=== PATIENT | female | born 1995 | race Caucasian/White ===

== ENCOUNTER 2017-07-10 09:32 | Emergency (ER) | payer OTHER ==
[2017-07-10 09:37] VITALS: BP 111/64; PULSE 87; RESP 18; TEMP 98.2; O2SAT 92
[2017-07-10] MEDS ORDERED: HYDROCODONE/APAP 5/325 TAB PO ONE (09:49)
--- NOTE | 2017-07-10 10:03 | EDPHY ---
H & P Stated Complaint: left arm injury 07/09 playing soccer Time Seen by Provider: 07/10/17 10:00 HPI/ROS: HPI: This is a 22-year-old female who presents with Chief Complaint: Left elbow injury Location: Left elbow Quality: Injury Duration: Yesterday afternoon Signs and Symptoms: + pain, no radiation, no weakness, no swelling, no numbness , no tingling Timing: Sudden, worse this morning Severity:06/16 Context: Patient was playing soccer yesterday for rec tryouts; lost her footing and she tripped and fell forward landing on her left arm. She felt immediate pain but it went away. She iced it when she got home from try outs and continued her activities of daily living. She woke up this morning and extreme pain with her left elbow with decreased range of motion secondary to pain. Right hand dominant. Drove self to ER. Modifying Factors: Ice applied transit really Comment: ROS: Constitutional: No fever, no chills, no weight loss Eyes: No blurred vision Respiratory: No shortness of breath, no cough Cardiovascular: No chest pain Gastrointestinal: No nausea, no vomiting no diarrhea Genitourinary: No dysuria Extremities: No myalgias Neurologic: No weakness, no numbness Skin: No rashes Hematologic: No bruising, no bleeding MEDICAL/SURGICAL HISTORY: Generally healthy. Denies any surgical history. Source: Patient Exam Limitations: No limitations - Personal History LMP (Females 10-55): 15-21 Days Ago Current Tetanus/Diphtheria Vaccine: Unsure Current Tetanus Diphtheria and Acellular Pertussis (TDAP): Unsure - Medical/Surgical History Hx Asthma: No Hx Chronic Respiratory Disease: No Hx Diabetes: No Hx Cardiac Disease: No Hx Renal Disease: No Hx Cirrhosis: No Hx Alcoholism: No Hx HIV/AIDS: No Hx Splenectomy or Spleen Trauma: No Other PMH: denies - Social History Smoking Status: Never smoked - Physical Exam Exam: CONSTITUTIONAL: See referral young adult white female, awake and alert, no obvious distress HEENT: Atraumatic and normocephalic, PERRL, EOMI. Tympanic membranes clear. . Oropharynx clear, no exudate and moist pink mucosa. Airway patent. No lymphadenopathy. No meningismus. Cardiovascular: Normal S1/S2, regular rate, regular rhythm, without murmur rub or gallop. PULMONARY/CHEST: Symmetrical and nontender. Clear to auscultation bilaterally Good air movement. No accessory muscle usage. ABDOMEN: Soft, nondistended, nontender, no rebound, no guarding, no peritoneal signs, no masses or organomegaly. No CVAT. EXTREMITIES: 2/2 pulses, no deformities, no clubbing, no cyanosis or edema. NEUROLOGICAL: no focal neuro deficits. GCS 15. SKIN: Warm and dry, no erythema. no rash. Good capillary refill. Constitutional: Initial Vital Signs Temperature (C) 36.8 C 07/10/17 09:34 Heart Rate 87 07/10/17 09:34 Respiratory Rate 18 07/10/17 09:34 Blood Pressure 111/64 07/10/17 09:34 O2 Sat (%) 92 07/10/17 09:34 O2 Delivery Mode Room Air Allergies/Adverse Reactions: No Known Allergies Allergy (Unverified 01/02/16 01:04) Home Medications: Medication Instructions Recorded oxyCODONE/APAP 5/325 [Percocet 1 - 2 tab PO Q4H PRN #20 tab 07/10/17 5/325 (*)] Medical Decision Making - Diagnostics Imaging Results: Imaging Impressions Elbow X-Ray 07/10/17 09:42 Impression: Radial head fracture. 2. Left Wrist, 4 views including a navicular view History: Pain post trauma, soccer injury. Findings: No fracture or dislocation is identified. The carpal bones are intact. The navicular is specifically normal. Impression: Nothing acute identified. Wrist X-Ray 07/10/17 09:49 Impression: Radial head fracture. 2. Left Wrist, 4 views including a navicular view History: Pain post trauma, soccer injury. Findings: No fracture or dislocation is identified. The carpal bones are intact. The navicular is specifically normal. Impression: Nothing acute identified. Procedures: Procedure: Fracture treatment. The patient had x-rays taken and I confirmed that the patient had a fractured left radial head; minimal displacement. I do not believe that the patient will require reduction at a later date. A sling immobilized in flexion was applied by tech. After application of the splint I returned and re-examined the patient. The splint was adequately immobilizing the joint and distal to the splint the patient's circulation and sensation was intact. ED Course/Re-evaluation: Elbow x-ray, wrist x-ray, oral medication Fall accidental in nature and history supports type of injury No signs of neurovascular compromise/compartment syndrome/tenting of skin/ joints above and below were examined and neurovascularly intact. Placed in sling; immobilization in flexion; mobility restrictions; RICE; Ortho follow-up Differential Diagnosis: Differential diagnosis includes but is not limited to capitellum fracture, olecranon fracture, elbow dislocation, radial fracture, ulnar fracture, nerve injury, tendon injury. - Data Points Medications Given: Discontinued Medications Hydrocodone Bitart/Acetaminophen ([place] 5/325) 1 tab PO EDNOW ONE Stop: 07/10/17 09:50 Last Admin: 07/10/17 10:00 Dose: 1 tab Departure - Departure Disposition: Home, Routine, Self-Care Clinical Impression: Closed fracture of head of left radius Qualifiers: Encounter type: initial encounter Fracture alignment: nondisplaced Qualified Code(s): S52.125A - Nondisplaced fracture of head of left radius, initial encounter for closed fracture Condition: Good Instructions: Elbow Fracture (ED) Additional Instructions: Take ibuprofen 600-800 mg 3 times a day with food as needed for pain and inflammation. Take [place] every 4 hours as needed for severe pain or breakthrough pain. Left elbow is to remain immobilized in flexion with sling continuously. Call Orthopedics on Tuesday for follow-up within the next 2-3 days. Referrals: NONE *PRIMARY CARE P,. [Primary Care Provider] - As per Instructions Rakesh Dietz MD [Medical Doctor] - 2-3 days, call for appt. Prescriptions: oxyCODONE/APAP 5/325 [Percocet 5/325 (*)] 1 - 2 tab PO Q4H PRN #20 tab PRN Reason: Pain, Severe
== END 2017-07-10 10:27 | disposition home or self-care (01) ==
DX: S52.125A Nondisplaced fracture of head of left radius, initial encounter for closed fracture (principal); W01.0XXA Fall on same level from slipping, tripping and stumbling without subsequent striking against object, initial encounter; Y99.8 Other external cause status; Y93.66 Activity, soccer
CPT/HCPCS: A4565

== ENCOUNTER 2017-08-13 03:01 | Emergency (ER) | payer OTHER ==
[2017-08-13] MEDS ORDERED: NS 1,000 ML IV ONE (03:06)
--- NOTE | 2017-08-13 03:06 | EDPHY ---
H & P HPI/ROS: HPI CHIEF COMPLAINT: Alcohol Intoxication HISTORY OF PRESENT ILLNESS: Patient 22-year-old female denies any significant medical history she presents emergency room with acute alcohol intoxication. Unclear exactly how much she drank. Unable to ambulate. She denies any focal complaints. She was brought in by EMS. Past Medical History: Denies significant medical history Past Surgical History: Denies significant surgical history Social History: Alcohol this evening, denies illicit drugs or tobacco. Family History: Noncontributory ROS REVIEW OF SYSTEMS: A comprehensive 10 point review of systems is otherwise negative aside from elements mentioned in the history of present illness. Exam Constitutional Intoxicated, triage nursing summary reviewed, vital signs reviewed, Sleepy, smells of alcohol Eyes normal conjunctivae and sclera, horizontal beating nystagmus consistent acute alcohol intoxication, otherwise pupils equal and react to light HENT normal inspection, atraumatic, moist mucus membranes, no epistaxis, neck supple/ no meningismus, no raccoon eyes. Respiratory clear to auscultation bilaterally, normal breath sounds, no respiratory distress, no wheezing. Cardiovascular rate normal, regular rhythm, no murmur, no edema, distal pulses normal. Gastrointestinal soft, non-tender, no rebound, no guarding, normal bowel sounds, no distension, no pulsatile mass. Genitourinary no CVA tenderness. Musculoskeletal no midline vertebral tenderness, full range of motion, no calf swelling, no tenderness of extremities, no meningismus, good pulses, neurovascularly intact. Skin pink, warm, & dry, no rash, skin atraumatic. Neurologic sleepy, intoxicated with alcohol,, alert and oriented x 3, AAOx3, moves all 4 extremities equally, motor intact, sensory intact, CN II-XII intact , , normal vision, normal speech. Psychiatric normal mood/affect. Heme/Lymph/Immune no lymphadenopathy. Differential Diagnosis: Includes but is not limited to in a particular order acute alcohol intoxication, alcohol abuse, dehydration, electrolyte abnormality , nausea vomiting from acute alcohol intoxication Medical Decision Making: Plan for this patient monitoring, check breath alcohol level, monitor for sobriety worsening of condition. Re-evaluation: 0633AM: Patient ambulatory. Stable gait. Clinically sober. Ready for discharge. No complaints. Alcohol level 330 upon arrival. Source: Patient, EMS - Medical/Surgical History Hx Asthma: No Hx Chronic Respiratory Disease: No Hx Diabetes: No Hx Cardiac Disease: No Hx Renal Disease: No Hx Cirrhosis: No Hx Alcoholism: No Hx HIV/AIDS: No Hx Splenectomy or Spleen Trauma: No Other PMH: denies - Social History Smoking Status: Never smoked Constitutional: Initial Vital Signs Temperature (C) 36.7 C 08/13/17 03:01 Heart Rate 78 08/13/17 03:01 Respiratory Rate 16 08/13/17 03:01 Blood Pressure 123/76 H 08/13/17 03:01 O2 Sat (%) 97 08/13/17 03:01 O2 Delivery Mode Room Air Allergies/Adverse Reactions: No Known Allergies Allergy (Unverified 01/02/16 01:04) Home Medications: Medication Instructions Recorded oxyCODONE/APAP 5/325 [Percocet 1 - 2 tab PO Q4H PRN #20 tab 07/10/17 5/325 (*)] Medical Decision Making - Data Points Laboratory Results: Laboratory Results 08/13/17 03:15 08/13/17 03:15 08/13/17 08/13/17 03:15 03:15 WBC 9.39 10^3/uL 10^3/uL (3.80-9.50) RBC 4.67 10^6/uL 10^6/uL (4.18-5.33) Hgb 15.4 g/dL g/dL (12.6-16.3) Hct 43.9 % % (38.0-47.0) MCV 94.0 fL fL (81.5-99.8) MCH 33.0 pg pg (27.9-34.1) MCHC 35.1 g/dL g/dL (32.4-36.7) RDW 12.3 % % (11.5-15.2) Plt Count 276 10^3/uL 10^3/uL (150-400) MPV 8.5 fL L fL (8.7-11.7) Neut % (Auto) 54.5 % % (39.3-74.2) Lymph % (Auto) 36.2 % % (15.0-45.0) Wilson % (Auto) 6.1 % % (4.5-13.0) Eos % (Auto) 2.0 % % (0.6-7.6) Baso % (Auto) 0.9 % % (0.3-1.7) Nucleat RBC Rel Count 0.0 % % (0.0-0.2) Absolute Neuts (auto) 5.12 10^3/uL 10^3/uL (1.70-6.50) Absolute Lymphs (auto) 3.40 10^3/uL H 10^3/uL (1.00-3.00) Absolute Monos (auto) 0.57 10^3/uL 10^3/uL (0.30-0.80) Absolute Eos (auto) 0.19 10^3/uL 10^3/uL (0.03-0.40) Absolute Basos (auto) 0.08 10^3/uL 10^3/uL (0.02-0.10) Absolute Nucleated RBC 0.00 10^3/uL 10^3/uL (0-0.01) Immature Gran % 0.3 % % (0.0-1.1) Immature Gran # 0.03 10^3/uL 10^3/uL (0.00-0.10) Sodium 143 mEq/L mEq/L (134-144) Potassium 3.6 mEq/L mEq/L (3.5-5.2) Chloride 104 mEq/L mEq/L (97-110) Carbon Dioxide 22 mEq/l mEq/l (22-31) Anion Gap 17 mEq/L H mEq/L (8-16) BUN 12 mg/dL mg/dL (7-23) Creatinine 0.7 mg/dL mg/dL (0.6-1.0) Estimated GFR > 60 Glucose 86 mg/dL mg/dL (70-100) Calcium 10.4 mg/dL mg/dL (8.5-10.4) Ethyl Alcohol 330 mg/dL H mg/dL (0-10) Medications Given: Discontinued Medications Sodium Chloride (Ns) 1,000 mls @ 0 mls/hr IV EDNOW ONE; Wide Open PRN Reason: Protocol Stop: 08/13/17 03:07 Last Admin: 08/13/17 03:20 Dose: 1,000 mls Departure - Departure Disposition: Home, Routine, Self-Care Clinical Impression: Alcoholic intoxication Qualifiers: Complication of substance-induced condition: uncomplicated Qualified Code(s): F10.920 - Alcohol use, unspecified with intoxication, uncomplicated Condition: Good Instructions: Alcohol Intoxication (ED), Abuse of Alcohol (ED) Referrals: Patient,NotPresent [Primary Care Provider] - As per Instructions
[2017-08-13 03:16] VITALS: TEMP 98.1
[2017-08-13 03:23] LABS: % IMMATURE GRANULYOCYTES 0.3 % (0.0-1.1); ABSOLUTE IMMATURE GRANULOCYTES 0.03 10^3/uL (0.00-0.10); ADD DIFF? NO; ADD MORPH? NO; ADD SCAN? NO; ATYPICAL LYMPHOCYTE FLAG 10 (0-99); FRAGMENT RBC FLAG 0 (0-99); HEMATOCRIT 43.9 % (38.0-47.0); HEMOGLOBIN 15.4 g/dL (12.6-16.3); LEFT SHIFT FLG 0 (0-99); LIPEMIA HEMOLYSIS FLAG 90 (0-99); MEAN CELL HEMOGLOBIN CONCENTR. 35.1 g/dL (32.4-36.7); MEAN PLATELET VOLUME 8.5 fL (8.7-11.7); PLATELET CLUMPS FLAG 0 (0-99); PLATELET COUNT 276 10^3/uL (150-400); RED BLOOD CELL COUNT 4.67 10^6/uL (4.18-5.33); RED CELL DISTRIBUTION WIDTH 12.3 % (11.5-15.2)
[2017-08-13 03:39] LABS: ANION GAP 17 mEq/L (8-16); CALCIUM 10.4 mg/dL (8.5-10.4); CARBON DIOXIDE 22 mEq/l (22-31); CHLORIDE 104 mEq/L (97-110); CREATININE 0.7 mg/dL (0.6-1.0); GLOMERULAR FILTRATION RATE > 60; GLUCOSE 86 mg/dL (70-100); POTASSIUM 3.6 mEq/L (3.5-5.2); SODIUM 143 mEq/L (134-144)
[2017-08-13 03:51] LABS: ETHANOL SERUM 330 mg/dL (0-10)
[2017-08-13 05:54] VITALS: PULSE 76
[2017-08-13 07:24] VITALS: BP 101/60; RESP 18; O2SAT 96
== END 2017-08-13 07:23 | disposition home or self-care (01) ==
LOC: EDUNIT#
PROC: 3E0337Z Introduction of Electrolytic and Water Balance Substance into Peripheral Vein, Percutaneous Approach (ICD-10-PCS; principal; 2017-08-13)
DX: F10.920 Alcohol use, unspecified with intoxication, uncomplicated (principal); E86.9 Volume depletion, unspecified
CPT/HCPCS: G0480

== ENCOUNTER 2017-10-15 00:54 | Emergency (ER) | payer OTHER ==
--- NOTE | 2017-10-15 01:05 | EDPHY ---
H & P Stated Complaint: ETOH HPI/ROS: HPI CHIEF COMPLAINT: Alcohol Intoxication HISTORY OF PRESENT ILLNESS: Patient 22-year-old female, [employer] student, she presents emergency room with acute alcohol intoxication. She was at a [employer] [facility] and according to EMS drank a large amount of alcohol. Unclear exactly how much she had. However she was found unable to ambulate vomiting on herself. She did get somewhat agitated combative EN route required 4 point restraints and a spit mask. She now arrives to ER room 5. She has common sleepy. Highly intoxicated with alcohol. No trauma reported. This time she has no complaints but she is intoxicated. Past Medical History: No significant medical history Past Surgical History: No significant surgical history Social History: [employer] student, multiple ER visits for alcohol Family History: Noncontributory ROS REVIEW OF SYSTEMS: A comprehensive 10 point review of systems is otherwise negative aside from elements mentioned in the history of present illness. Exam Constitutional Intoxicated, triage nursing summary reviewed, vital signs reviewed, Sleepy, smells of alcohol Eyes normal conjunctivae and sclera, horizontal beating nystagmus consistent acute alcohol intoxication, otherwise pupils equal and react to light HENT normal inspection, atraumatic, moist mucus membranes, no epistaxis, neck supple/ no meningismus, no raccoon eyes. Respiratory clear to auscultation bilaterally, normal breath sounds, no respiratory distress, no wheezing. Cardiovascular rate normal, regular rhythm, no murmur, no edema, distal pulses normal. Gastrointestinal soft, non-tender, no rebound, no guarding, normal bowel sounds, no distension, no pulsatile mass. Genitourinary no CVA tenderness. Musculoskeletal no midline vertebral tenderness, full range of motion, no calf swelling, no tenderness of extremities, no meningismus, good pulses, neurovascularly intact. Skin pink, warm, & dry, no rash, skin atraumatic. Neurologic sleepy, intoxicated with alcohol,, alert and oriented x 3, AAOx3, moves all 4 extremities equally, motor intact, sensory intact, CN II-XII intact , , normal vision, normal speech. Psychiatric normal mood/affect. Heme/Lymph/Immune no lymphadenopathy. Differential Diagnosis: Includes but is not limited to in a particular order acute alcohol intoxication, alcohol abuse, dehydration, electrolyte abnormality , nausea vomiting from acute alcohol intoxication Medical Decision Making: Plan for this patient monitor closely for worsening of condition. Monitor for sobriety. Once patient is sober and has a stable gait can answer questions appropriately I will allow her to be discharged from the emergency room. Re-evaluation: 0612am: PATIENT AMBULATORY. CLINICALLY SOBER. STABLE GAIT. I DISCUSSED WITH HER THAT THIS IS HER 3RD ER VISIT FOR ALCOHOL INTOXICATION. HIGHLY RECOMMEND SHE REFRAIN FROM DRINKING ALCOHOL. ADDITIONALLY RECOMMEND SHE GETS HELP ON OUTPATIENT BASIS IF SHE CONSIDERS THAT SHE IS DRINKING TOO MUCH ALCOHOL. SHE UNDERSTANDS. Source: Patient, Police, EMS - Personal History LMP (Females 10-55): Unknown Current Tetanus/Diphtheria Vaccine: Yes Current Tetanus Diphtheria and Acellular Pertussis (TDAP): Yes - Medical/Surgical History Hx Asthma: No Hx Chronic Respiratory Disease: No Hx Diabetes: No Hx Cardiac Disease: No Hx Renal Disease: No Hx Cirrhosis: No Hx Alcoholism: No Hx HIV/AIDS: No Hx Splenectomy or Spleen Trauma: No Other PMH: denies - Social History Smoking Status: Never smoked Constitutional: Initial Vital Signs Temperature (C) 36.7 C 10/15/17 00:57 Heart Rate 87 10/15/17 00:57 Respiratory Rate 15 10/15/17 00:57 Blood Pressure 107/70 10/15/17 00:57 O2 Sat (%) 95 10/15/17 00:57 O2 Delivery Mode Room Air Allergies/Adverse Reactions: No Known Allergies Allergy (Verified 10/15/17 00:58) Home Medications: Medication Instructions Recorded NK [No Known Home Meds] 10/15/17 Departure - Departure Disposition: Home, Routine, Self-Care Clinical Impression: Alcoholic intoxication Qualifiers: Complication of substance-induced condition: uncomplicated Qualified Code(s): F10.920 - Alcohol use, unspecified with intoxication, uncomplicated Condition: Good Instructions: Alcohol Intoxication (ED), Abuse of Alcohol (ED), Alcohol Dependence (ED) Additional Instructions: 1. Please stop drinking alcohol. Referrals: NONE *PRIMARY CARE P,. [Primary Care Provider] - As per Instructions
[2017-10-15 03:18] VITALS: O2SAT 96
[2017-10-15 06:34] VITALS: BP 110/64; PULSE 64; RESP 16; TEMP 97.9
== END 2017-10-15 06:34 | disposition home or self-care (01) ==
LOC: EDUNIT#
DX: F10.920 Alcohol use, unspecified with intoxication, uncomplicated (principal)

== ENCOUNTER 2017-11-27 00:49 | Emergency (ER) | payer SELFPAY ==
--- NOTE | 2017-11-27 00:59 | EDPHY ---
H & P Stated Complaint: EtOH Time Seen by Provider: 11/27/17 00:50 HPI/ROS: Chief Complaint: Alcohol intoxication HPI: 22-year-old female who was found on the front porch intoxicated. Patient states she was out drinking with friends who then left her. Is unable to ambulate on their own. Patient brought in by EMS for further evaluation. No obvious signs of trauma per EMS. Was recently seen in this emergency depart for similar episode. ROS: 10 point Review of Systems is negative except as noted in the HPI. PMH: Denies Medications: Denies Allergies: Denies Social History: Positive for alcohol Family History: non-contributory Physical Exam: Gen: Awake, alert, slurred speech, smells of alcohol HEENT: Atraumatic Nose: no epistaxis or deformity Eyes: PERRLA, EOMI Mouth: Moist mucosa Neck: Supple, no step-offs or deformity Chest: Atraumatic, lungs clear to auscultation Heart: S1, S2 normal, no murmur Abd: Soft, non-tender, no guarding Back: Atraumatic Ext: no edema, atraumatic Skin: no rash Neuro: Sensation grossly intact, Strength 5/5 in bilateral upper and lower extremities - Personal History LMP (Females 10-55): 1-7 Days Ago Current Tetanus Diphtheria and Acellular Pertussis (TDAP): Yes - Medical/Surgical History Hx Asthma: No Hx Chronic Respiratory Disease: No Hx Diabetes: No Hx Cardiac Disease: No Hx Renal Disease: No Hx Cirrhosis: No Hx Alcoholism: No Hx HIV/AIDS: No Hx Splenectomy or Spleen Trauma: No Other PMH: denies - Social History Smoking Status: Never smoked Constitutional: Initial Vital Signs Temperature (C) 36.4 C 11/27/17 00:55 Heart Rate 100 11/27/17 00:55 Respiratory Rate 16 11/27/17 00:55 Blood Pressure 117/77 11/27/17 00:55 O2 Sat (%) 92 11/27/17 00:55 O2 Delivery Mode Room Air Allergies/Adverse Reactions: No Known Allergies Allergy (Verified 10/15/17 00:58) Home Medications: Medication Instructions Recorded NK [No Known Home Meds] 10/15/17 Medical Decision Making ED Course/Re-evaluation: Patient is now awake and appropriate. Ambulating unassisted to the bathroom. No current complaints. Medically cleared for discharge. I have noted this is the patient's 4th visit for alcohol intoxication in the past year and a half. I have counseled her at length that this is an indication that she has a problem with alcohol. She states she does not drink any day but when she does drink she does seem to drink to excess. I told her is probably important that she just stop drinking alcohol as the relationship she is establishing with it is quite on healthy. Departure - Departure Disposition: Home, Routine, Self-Care Clinical Impression: Alcoholic intoxication Condition: Good Instructions: Alcohol Intoxication (ED) Additional Instructions: Please stop binge drinking alcohol. Referrals: Patient,NotPresent [Unknown] - As per Instructions
[2017-11-27 05:36] VITALS: PULSE 98; O2SAT 95
[2017-11-27 07:18] VITALS: BP 100/60; RESP 14; TEMP 98.1
== END 2017-11-27 07:39 | disposition home or self-care (01) ==
LOC: EDUNIT#
DX: F10.129 Alcohol abuse with intoxication, unspecified (principal)

== ENCOUNTER 2018-03-10 10:52 | Inpatient (IN) | payer OTHER ==
[2018-03-10 12:14] LABS: PLATELET COUNT 295 10^3/uL (150-400)
--- NOTE | 2018-03-10 13:31 | EDPHY ---
HPI/HX/ROS/PE/MDM Narrative: CHIEF COMPLAINT: M1 hold HPI: The patient is a 22-year-old female with a history of 5 proximally for this the ER related to alcohol intoxication. This time, she was brought to the emergency department by police on an M1 hold. Per [employer], the patient apparently has not been sleeping for several days and was extremely altered with paranoid thoughts. Patient denies any complaints. She states that she fractured her right index finger approximately a week ago after punching a wall. She has been seen by a specialist for this and was placed in a finger splint. She denies any significant change or pain in finger. REVIEW OF SYSTEMS: A comprehensive 10 point review of systems was performed and is negative except as stated above. PMH: History of alcohol abuse. No known psychiatric disease per chart. SOCIAL HISTORY: History of alcohol abuse. Patient denies current drug abuse. PHYSICAL EXAM: General:Patient is alert, in no acute distress. ENT:Eyes are normal to inspection. ENT inspection normal. Neck: Normal inspection. Full range of motion. Respiratory:No respiratory distress. Breath sounds normal bilaterally. Cardiovascular: Regular rate and rhythm. Strong peripheral pulses. Normal cap refill. Abdomen:The abdomen is nontender to palpation. There are no peritoneal signs. There are normal bowel sounds. Back: Normal to inspection. No tenderness to palpation. Skin: Normal color. No rash. Warm and dry. Acne on face noted. Extremities: Right index finger in splint with mild associated ecchymosis, normal cap refill. Neuro: Normal motor function. Normal sensory function. Psychiatric: Guarded, denies suicidal ideation. (Manav To) MDM: 4:10 p.m. the patient has been accepted to [address] [place] [id number] Oliveros. I have completed transfer paperwork. (Jeremias Flores) - Data Points Laboratory Results: Laboratory Results 03/10/18 11:54 03/10/18 11:54 03/10/18 03/10/18 03/10/18 11:54 11:54 11:54 WBC RBC Hgb Hct MCV MCH MCHC RDW Plt Count MPV Neut % (Auto) Lymph % (Auto) [place] % (Auto) Eos % (Auto) Baso % (Auto) Nucleat RBC Rel Count Absolute Neuts (auto) Absolute Lymphs (auto) Absolute Monos (auto) Absolute Eos (auto) Absolute Basos (auto) Absolute Nucleated RBC Immature Gran % Immature Gran # Sodium 137 mEq/L mEq/L (135-145) Potassium 4.2 mEq/L mEq/L (3.5-5.2) Chloride 99 mEq/L mEq/L (97-110) Carbon Dioxide 26 mEq/l mEq/l (22-31) Anion Gap 12 mEq/L mEq/L (8-16) BUN 14 mg/dL mg/dL (7-23) Creatinine 0.6 mg/dL mg/dL (0.6-1.0) Estimated GFR > 60 Glucose 80 mg/dL mg/dL (70-100) Calcium 10.1 mg/dL mg/dL (8.5-10.4) Urine Test NEGATIVE Urine Opiates Screen NEGATIVE (NEGATIVE) Urine Barbiturates NEGATIVE (NEGATIVE) Ur Phencyclidine Scrn NEGATIVE (NEGATIVE) Ur Amphetamine Screen NON-NEGATIVE H (NEGATIVE) U Benzodiazepines Scrn NEGATIVE (NEGATIVE) Urine Cocaine Screen NEGATIVE (NEGATIVE) U Marijuana (THC) Screen NON-NEGATIVE H (NEGATIVE) Ethyl Alcohol < 10 mg/dL mg/dL (0-10) 03/10/18 11:54 WBC 9.67 10^3/uL H 10^3/uL (3.80-9.50) RBC 4.70 10^6/uL 10^6/uL (4.18-5.33) Hgb 15.1 g/dL g/dL (12.6-16.3) Hct 43.7 % % (38.0-47.0) MCV 93.0 fL fL (81.5-99.8) MCH 32.1 pg pg (27.9-34.1) MCHC 34.6 g/dL g/dL (32.4-36.7) RDW 12.3 % % (11.5-15.2) Plt Count 295 10^3/uL 10^3/uL (150-400) MPV 9.1 fL fL (8.7-11.7) Neut % (Auto) 67.7 % % (39.3-74.2) Lymph % (Auto) 20.9 % % (15.0-45.0) [place] % (Auto) 9.2 % % (4.5-13.0) Eos % (Auto) 1.7 % % (0.6-7.6) Baso % (Auto) 0.3 % % (0.3-1.7) Nucleat RBC Rel Count 0.0 % % (0.0-0.2) Absolute Neuts (auto) 6.55 10^3/uL H 10^3/uL (1.70-6.50) Absolute Lymphs (auto) 2.02 10^3/uL 10^3/uL (1.00-3.00) Absolute Monos (auto) 0.89 10^3/uL H 10^3/uL (0.30-0.80) Absolute Eos (auto) 0.16 10^3/uL 10^3/uL (0.03-0.40) Absolute Basos (auto) 0.03 10^3/uL 10^3/uL (0.02-0.10) Absolute Nucleated RBC 0.00 10^3/uL 10^3/uL (0-0.01) Immature Gran % 0.2 % % (0.0-1.1) Immature Gran # 0.02 10^3/uL 10^3/uL (0.00-0.10) Sodium Potassium Chloride Carbon Dioxide Anion Gap BUN Creatinine Estimated GFR Glucose Calcium Urine Test Urine Opiates Screen Urine Barbiturates Ur Phencyclidine Scrn Ur Amphetamine Screen U Benzodiazepines Scrn Urine Cocaine Screen U Marijuana (THC) Screen Ethyl Alcohol General Time Seen by Provider: 03/10/18 10:58 Initial Vital Signs: Initial Vital Signs Temperature (C) 36.7 C 03/10/18 10:52 Heart Rate 90 03/10/18 10:52 Respiratory Rate 16 03/10/18 10:52 Blood Pressure 126/88 H 03/10/18 10:52 O2 Sat (%) 98 03/10/18 10:52 O2 Delivery Mode Room Air Allergies/Adverse Reactions: oxycodone Allergy (Verified 03/10/18 16:43) "Itchy", "[place] loopy" Home Medications: Medication Instructions Recorded Dextroamphetamine/Amphetamine 15 mg PO BID@10,14 03/10/18 [ADDERALL 15 MG TABLET] Ibuprofen [Motrin (*)] 400 mg PO Q4H PRN 03/10/18 Norethindrone AC-Eth Estradiol 1 each PO DAILY 03/10/18 [Kendall 1.5 mg-30 Mcg Tablet] Departure - Departure Disposition: [facility] IP Clinical Impression: Paranoia (psychosis) Condition: Fair
[2018-03-10] MEDS ORDERED: LORazepam 0.5 MG TAB PO PRN (20:21)
[2018-03-10] MEDS ORDERED: MAGNESIUM HYDROXIDE 30 ML UDCUP PO PRN (20:21)
[2018-03-10] MEDS ORDERED: MAG HYDROX/AL HYDROX/SIMETH 30 ML UDCUP PO PRN (20:21)
[2018-03-10] MEDS ORDERED: ACETAMINOPHEN 325 MG TAB PO PRN (20:21)
[2018-03-10] MEDS ORDERED: OLANZapine 5 MG TAB PO PRN (20:23)
--- NOTE | 2018-03-11 08:28 | GCON ---
[f rep st] CONSULTATION DATE OF CONSULTATION: 03/11/2018 REASON FOR CONSULTATION: I was asked by Dr. Oliveros to see Ms. Emerson in regard to her medical iss ues HISTORY OF PRESENT ILLNESS: This is a 22-year-old female who was brought in by [facility] yesterday on an M1 hold, to the emergency department, after not sleeping and being extremely par anoid. She confirms this to me quite clearly. She tells me it was likely a combination of stress, h er using Adderall, drinking too much coffee, and not prioritizing sleep. She slept better last night . She punched a wall about a week ago and saw a specialist at [facility] for a fractured left index finger. She will not need surgery. She is in a splint. She tells me she has no numbness in her fin samina at this point. It is not extremely painful. She denies any current active medical issues. She tells me she did have a headache, which is now res olved. No chest pain, shortness of breath, nausea, vomiting, new rash, dysuria. PAST MEDICAL/SURGICAL HISTORY: ADHD. MEDICATIONS: Please see medication reconciliation. ALLERGIES: No known drug allergies. SOCIAL HISTORY: She is a [employer] student. 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 She swanson s not drink. She has cut down her alcohol use significantly. She is planning on going to law school after traveling for a year. FAMILY HISTORY: She denies any significant family history. REVIEW OF SYSTEMS: A 10-point review of systems is conducted and is negative except per HPI. PHYSICAL EXAM: VITAL SIGNS: Blood pressure 111/70, heart rate 92, respiration rate 16, saturating 9 5% on room air, temperature 36.6. GENERAL: In general, Ms. Emerson is a pleasant female who is res ting comfortably, in no acute distress. HEENT: Shows her to have significant acne on her face. CAR DIOVASCULAR: Regular rate and rhythm and rhythm. No murmurs, rubs, or gallops. PULMONARY: Lungs c lear to auscultation bilaterally. ABDOMEN: Soft, nontender, nondistended. SKIN: No rash. : Sh ows no Mcnally. NEUROLOGIC: Shows her to be alert and oriented x3. She is providing a good history. She has a nonfocal neurologic exam. PSYCHIATRIC: Shows her to be calm and cooperative. LABS: White count is 9.6. Basic metabolic panel is normal. Urine test is negative. She is now negative for amphetamines as well as marijuana. DATA: 1. I reviewed her chart including her ED visit. 2. I reviewed her wrist and elbow x-ray from July of 2017. This showed a radial head fracture. IMPRESSION AND PLAN: 1. Right finger fracture: This is nonoperative. I recommend continuing her splint. She is followi ng up at [facility] for this. 2. Mild leukocytosis: Likely stress-induced. Monitor for any fevers and would perform a more full infectious workup at that time. 3. Insomnia/paranoia: This will be managed per Psychiatry. 4. Urinalysis, now negative for amphetamines: Likely due to Adderall. 5. Marijuana use: May be contributing to her overall paranoia. Thank you for involving Hospital Medicine in the care of Ms. Emerson. We will sign off. Please re- consult with any additional questions. /[id number]/MODL
[2018-03-11] MEDS: IBUPROFEN 200 MG TAB PO PRN (13:46)
[2018-03-11] MEDS: FLUoxetine 20 MG CAP PO SCH (13:47)
--- NOTE | 2018-03-11 14:39 | BAPA ---
[f rep st] ADMISSION PSYCHIATRIC ASSESSMENT DATE OF SERVICE: 03/11/2018 CHIEF COMPLAINT: "I've been stressed with finals and my graduation. I couldn' t sleep last night, but I think I'm fine. My recent stressor is my father's ." HISTORY OF PRESENT ILLNESS: The patient is a 22-year-old single female brought to the [facility] ED on an M1 hold due to grave disability. According to the M1 hold, patient contacted the police twice and was behaving in such a strange way that the police did a wellness check and found that the patient was having a conversation with herself and acting erratically. Patient's roommate also reported the patient punched some furniture and injured her hand. She was reported talking to herself and seeing people that were not there. She reported the recent stressor was her father's . However, her father in July of 2016. She also reports that she is going through end of semester and finals preparation and is feeling a lot of stress for academic work. The patient has been in the [facility] ED approximately 4 times in the last several months for alcohol-related issues, including on November 27, 2017, October 15, 2017, August 13, 2017, and in December of 2015. The patient told supervisor garage that she had not used marijuana since she was in high school. However , urine drug screen was positive for marijuana. Mother told the ED supervisor garage that the patient had recently ingested an edible. ED supervisor garage also spoke with the patient's outpatient therapist, Lavonne Fletcher, who said that she had spoken with the patient's roommate and friends over the phone. The friend had described the patient as having erratic behavior including not sleeping, being afraid to be in her own home, accusing her roommates of breaking into her room, and talking to someone who was not there. The therapist started seeing the patient after her father's in July of 2016. Therapist states that she has not seen the patient since November of 2017 but that the patient recently called her requesting a note for missing classes due to medical necessity. The therapist agreed to write the note only if the patient came in for an appointment, but the patient never showed. Collateral information was provided by the mother, indicated that the mom has had only sporadic contact with the patient, sometimes not hearing from her for several weeks. Recently, the patient had been calling her mother and talking in a tangential and erratic way. Patient called the mom the night prior to admission and claimed that her roommates were listening to what she was saying through the vents and said that she was afraid to be alone in her apartment. Mother learned that the patient had ingested an edible the night that she called her. When this MD met with the patient on the [facility]patient [facility] Unit, she was lucid, calm, rational, cooperative, pleasant, appropriate, alert, and oriented x4. She made good eye contact. She was sitting on the edge of her bed. RN was present in the room during the interview. She says that she had gotten "the best night's sleep" last night. She admitted that she had not been sleeping for several nights because she had been "pulling an all nighter" in order to get some assignments completed before the end of the school semester. She admits that she has been using Adderall but does not admit to using more than the prescribed amount but says that she has been working extra hard to get schoolwork done and complete assignments. She is hoping to walk in graduation next week. She denied having any bizarre thoughts or delusions. She denied feeling paranoid or scared. She denied having any active auditory or visual hallucinations. She denied any ideas of reference. She had no signs or symptoms of garcia. She did not have increased goal-directed activity or decreased need for sleep. She did not endorse racing thoughts. She did not exhibit pressured speech or any grandiose delusions. Patient denied feeling sad, depressed, or anxious. She denied having any thoughts, plans, or intents to hurt herself or anyone else. PAST PSYCHIATRIC HISTORY: Patient has no prior psychiatric hospitalization. She has been seeing a therapist off and on since her father in July of 2016. Her therapist's name is Lavonne Fletcher, but her therapist said she has not seen her since November of 2017. The patient states that she has been going to [facility] and states that she has been getting fluoxetine from Dr. Leandro Sena. She says that she was seeing a [facility] psychiatrist after her father' s , who started her on Prozac, and says that she took it from spring and stopped in the summer, but then started it up again when she started seeing Dr. Farooq Sena at [facility] in fall. Says that she takes it every day and has only missed the last 2 nights from being in the emergency department and being here on [address]. Patient states that she does not feel that the Prozac has made "much of a difference," but she says other times she feels like the medication has helped her be able to function better. When MD asked if she had any side effects or adverse reactions since taking the medication, she denied any. She stated that she wants to continue on the medication and would like to continue to take it while she is here in the hospital. She has only ever been on 20 mg dose. MD explained to the patient why we would be holding her Adderall, since it can often times increase mood lability, increase irritability, and sometimes even cause psychotic symptoms. Patient verbalized her understanding and agreed with holding that medication while she was here in the hospital. MD did explain at length about the mood altering and cognitive affects of using marijuana and drinking alcohol. Patient said that she has not been using marijuana, but mother says that she ingested an edible recently and was exhibiting signs of psychosis, paranoia when she was talking to Mom on the phone recently. The patient's urine drug screen was also positive prior to this admission for marijuana and for amphetamines. ALLERGIES: Oxycodone. CURRENT MEDICATIONS: Include fluoxetine 20 mg p.o. daily, Adderall Immediate Release 15 mg p.o. b.i.d. at 10 a.m. and 2 p.m. Patient is also on ibuprofen 400 mg p.o. q.4 hours for sprained finger. She is also on oral contraceptive. LABORATORY DATA: Labs were done in the [facility] ED. White cell count was 9.67 , hemoglobin 15.1, hematocrit 43.7, platelet count was 295. Sodium was 137, potassium is 4.2, BUN was 14, creatinine 0.6, glucose was 80, calcium was 10.0. Urine test was negative. Urine drug screen was positive for amphetamine and for marijuana. All other drugs of abuse were negative. Ethyl alcohol level was less than 10. PAST MEDICAL HISTORY: Patient recently fractured 3 of the fingers on her right hand from punching a wall. She is currently only wearing a splint on 1 of the fingers. She has no other chronic medical conditions. SOCIAL HISTORY: Patient's parents when she was 4 years old. Her parents' divorce was not finalized until she was 13. Mother states that the divorce was very "bitter and lengthy." Patient says she has several friends. She gets along well with her roommates, but mother says that she has "burned out several of her friends" over the past several years. Patient is supposed to be graduating from next week, although she is not going to be finished with her course work until October of 2018. She was planning to walk on March 16. Patient's major is political science. According to the patient's mother, patient had been very angry at her father, who had a history of alcoholism. She had called her father prior to his , stating that she wanted to disown him because of his relapse. Mother says that the patient has a lot of guilt over this after her father in July of 2016. FAMILY HISTORY: Patient's father was an alcoholic. There is no other record of mental health illness in the family. SUBSTANCE USE HISTORY: Patient denied substance use but said that she did use marijuana in high school sporadically. She denies recent use of marijuana. However, Mother reports that the patient ingested an edible the week prior to admission. Her urine drug screen was positive. She does note the patient was not very forthcoming about her drinking. She said that she drinks about 2 times a week and consumes 2-3 drinks per occasion. However, she was seen in the [facility] ED on 4 separate occasions for alcohol-related issues, including acute intoxication. Her most recent visit was in November of 2017. TRAUMA HISTORY: There is no known trauma history. LEGAL HISTORY: There are no known legal issues. MENTAL STATUS EXAMINATION: This is a tall, well-developed, appropriately groomed female, sitting in bed with the blankets pulled up, wearing street clothes, T-shirt and shorts. She is alert and oriented x4. Her affect is euthymic. Her demeanor is appropriate. She makes good eye contact. Her speech rate and volume are normal. Her intellectual function appears to be average, based upon her vocabulary, fund of knowledge, and educational history. She denies feeling sad, helpless, hopeless, worthless, and anxious. She denies any symptoms of psychosis, including denying auditory and visual hallucinations, paranoid delusions, ideas of reference, and any bizarre thoughts. There are no signs or symptoms of garcia. There is no increase in goal-directed activity, decreased need for sleep. She denies racing thoughts. There is no evidence of pressured speech or grandiose delusions. She does not have elated or elevated mood. She denies any thoughts, plans, or intents to hurt herself or anyone else. Her thought process is linear and goal directed. Her insight and judgment are both impaired, as evidenced by her use of mood- altering and cognitively altering substances which led to what sounds like acute psychotic symptoms for the last several days. IMPRESSION: 1. Substance-induced mood disorder. 2. Major depressive disorder by history, based upon her being prescribed Prozac by Dr. Farooq Sena. 3. Attention deficit-hyperactivity disorder by history. 4. Cannabis use disorder, severe. 5. Alcohol use disorder, severe. 6. Amphetamine use disorder, unknown severity. Unclear whether or not the patient abuses her prescription stimulant but, based upon her most recent psychotic symptoms, this is a distinct possibility. 7. Lack of social support, difficulty in interpersonal relationships, strained relationships with peers and roommates. 8. Grief, guilt, and loss from Father's in 2016. 9. Academic pressures. PLAN: 1. Admit patient to the Inpatient [facility]al Health Services Unit on [address] [place] [address] on an M1 hold. 2. Monitor closely for safety. Patient is currently not exhibiting any signs of psychosis or unsafe behavior. She is acting appropriately. She is denying any thoughts, plans, or intents to hurt herself or anyone else. 3. Continue to monitor and observe the patient. Her acute psychotic symptoms seem to have remitted since she is in a controlled environment and is not taking Adderall or using marijuana. Likely her symptoms were substance use related. 4. Patient states that she wants to continue taking Prozac 20 mg daily. She states that she has been compliant with the medication, except for the last 2 nights when she was in the emergency department and admitted to [address] [place] [address]. 5. Estimated length of stay is 2-3 days. Patient is very distressed that she will not be discharged prior to the expiration of her M1 hold because she states that she has her birthday on March 15 and that she intends to walk in graduation on March 16, but explained to the patient that making sure that she is no longer psychotic and not having any acute mental health symptoms will be the most helpful thing in order to ensure that she can complete the and walk with her class next Tuesday. Her mental health hold expires on Tuesday 03/13 at 0855. /[id number]/MODL MTDD
[2018-03-12] MEDS: FLUoxetine 20 MG CAP PO SCH (08:18)
--- NOTE | 2018-03-12 13:37 | SOAPPROG ---
SOAP Progress Note Assessment/Plan: Assessment: 22 yo [employer] student who called police several times prior to admission reporting feeling scared and imaging there were intruders in her apartment. MOC and roommates report bizarre behavior recently including talking to herself, fear of being alone in apartment and not sleeping. Plan: 03/12/18 13:32 1. Patient says she feels "fine" and denies any psychotic sxs. 2. Patient slept 9 hrs last night and has been napping throughout the day instead of attending groups. 3. [facility] expires Tuesday, 03/13 at 0855. Subjective: Met with patient, reviewed chart and d/w staff. Patient is sitting in dining room finishing her lunch. She says she feels "fine" and denies feeling sad, depressed, hopeless, helpless or worthless. She also denies any psychotic sxs, including hallucination, paranoia, IOR or bizarre thoughts. Roommates report that patient has been talking to herself for several weeks, but tries to minimize it. She does not show any signs of responding to stimuli, talking to herself or out loud, speaking or laughing inappropriately on unit. She denies any AH/VH. She denies any SI/HI. She is sleeping well (> 9 hrs both nights), eating 100% of meals and drinking adequate fluids. Objective: Vital Signs Temp Pulse Resp BP Pulse Ox 36.6 C 86 16 104/58 L 94 03/12/18 06:00 03/12/18 06:00 03/12/18 06:00 03/12/18 06:00 03/12/18 06:00 MSE: Affect: Euthymic Mood: "Fine" TP: Linear TC: Denies any SI/HI, no AH/VH , no paranoia Insight/Judgment: Fair - Time Spent With Patient Time Spent With Patient: 20" - Pending Discharge Pending Discharge Within 24 Hours: Yes Pending Discharge Date: 03/13/18 (Likely to d/c on Tuesday when aftercare plan is finalized) Pending Discharge Time: 11:00 ICD10 Worksheet Patient Problems: Problems Problem Status Onset Paranoia (psychosis) Acute
[2018-03-12] MEDS: IBUPROFEN 200 MG TAB PO PRN (15:54)
[2018-03-13 06:29] VITALS: BP 105/61
--- NOTE | 2018-03-13 08:06 | SOAPPROG ---
SOAP Progress Note Assessment/Plan: Assessment: Stimulant and Cannabis related psychotic disorder Stimulant and Cannabis use disorders History of ADHD History of unspecified depressive disorder and unspecified anxiety disorder Patient had severe insomnia with psychotic symptoms 3 months after starting Prozac, concurrent with abusing Adderall and abusing Cannabis Patient is calm and organized and denies psychotic symptoms and was sleeping and eating well on the unit and acting appropriately. Patient lives with 6 roommates who can monitor patient and Plan: Discontinue Adderall and Fluoxetine until seen by outpatient psychiatrist Discussed risk of Fluoxetine causing bipolar disorder symptoms and suicidal ideation Discussed risk of stimulants and cannabis causing psychosis Discharge with mother today, follow up at [facility] 03/13/18 08:11 Subjective: CC: "I'm fine" Patient reports recently taking Adderall in order to stay awake to study and complete homework. Reports after not sleeping for 3 nights and using cannabis ' to help me calm down and sleep' then having paranoia that a man from a horror move was stealing money from her bank account. Reports talking to self and having VH of a man prior to admission. Reports after sleeping Tuesday night not having and paranoia or AH or VH. Reports stable mood, denies feeling depressed, sad, hopeless, agitated or irritable. Reports no history of grandiosity or impulsive or reckless behavior. Reports no history of psychiatric hospitalizations or suicide attempts or violence toward others. Reports taking Prozac for 3 months from [facility] for mild anxiety and mild depressive symptoms, and Adderall for 3 years for ADHD and sees psychiatrist Dr. Sena at [facility]. Reports no history of severe depression with anhedonia, sustained low mood, or suicidality in the past. Objective: Vital Signs Temp Pulse Resp BP Pulse Ox 36.4 C 91 16 105/61 95 03/13/18 06:00 03/13/18 06:00 03/13/18 06:00 03/13/18 06:00 03/13/18 06:00 Alert WF with acne. Ambulatory without weakness or tremors. Speech RRR. Mood 'I'm fine.' Thoughts organized. Denies SI or HI or AH or paranoia. Insight fair. Judgment appropriate. Staff report patient calm and sleeping and eating well over the weekend. Mother visited and reported patient was at her baseline and requested patient be discharged. - Time Spent With Patient Time Spent With Patient: 40 minutes - Pending Discharge Pending Discharge Within 24 Hours: Yes Pending Discharge Within 48 Hours: No Pending Discharge Date: 03/13/18 Pending Discharge Time: 11:00 ICD10 Worksheet Patient Problems: Problems Problem Status Onset Substance-induced psychotic disorder Acute Paranoia (psychosis) Acute
[2018-03-13] MEDS: IBUPROFEN 200 MG TAB PO PRN (08:18)
--- NOTE | 2018-03-13 09:13 | BDS ---
[f rep st] BEHAVIORAL HEALTH DISCHARGE SUMMARY IDENTIFICATION: This is a 22-year-old single white female who lives with 6 roommates. She is a political science major, is scheduled to graduate from the [employer] this month. The patient's mother lives in [place] and traveled to [place] this weekend for the patient's graduation. REASON FOR ADMISSION: Please see psychiatric assessment by Dr. Goncalves from March. The patient has been in outpatient treatment at [facility] with Dr. Manpreet Sena. The patient was placed on an M1 hold by police after she was acting erratic at home. She apparently punched furniture, was talking to herself, not sleeping, and having visual hallucinations of people. She had been using marijuana edibles and abusing her Adderall. She had not been sleeping for several nights, concurrent with finishing her finals in classes. PAST PSYCHIATRIC HISTORY: The patient had no history of prior psychiatric hospitalizations. She had no history of suicide attempts or violence toward others. She has a private therapist named Lavonne Fletcher but has not been seeing her for several months. She goes to [facility] and sees psychiatrist, Dr. Manpreet Sena. She is taking fluoxetine for mild depression and mild anxiety symptoms for about 3 months. She has been taking Adderall for ADHD for 3 years. BRIEF MEDICAL HISTORY: She denies any chronic medical problems. She apparently injured her hand after punching a wall. HOSPITAL COURSE: The patient was admitted on M1 hold for grave disability after the patient was having insomnia, irritability, punched a wall and punched furniture, was having visual hallucinations of a man, as well as severe insomnia and paranoia. On the unit, the patient slept well and was calm. She reported using cannabis edibles and abusing her Adderall concurrent with finishing her classes. The patient slept overnight and did not show any further signs of psychosis. She reported remission of paranoia, remission of auditory and visual hallucinations, was not agitated or irritable, was calm, pleasant, eating well, sleeping well on the unit. She denied suicidal ideation or homicidal ideation. She did not appear to have severe emotional distress and /or any major medical problems. The patient on the unit was counseled about the dangers of cannabis causing psychosis. She was counseled regarding amphetamine abuse causing psychosis and insomnia. She was also counseled about the fact that fluoxetine can induce bipolar disorder symptoms such as insomnia, agitation, irritability, decreased need for sleep, and impulsive behavior. The patient denied a prior history of having manic episodes in the past, but had been recently prescribed fluoxetine about 3 months ago and was having insomnia and irritability, which would be concerning for bipolar disorder. The patient on the unit was able to complete a safety plan. She contacted her mother who came to [place] early for the patient's graduation. She reported that after discharge that her 6 roommates can monitor her safety and stability and that her mother will stay in [place] until she gets followup mental health treatment at [facility]. CONDITION ON DISCHARGE: She is an alert white female in no acute distress, who is ambulatory, with acne. She describes her mood as "I'm fine." Her affect is euthymic and pleasant. Her speech is regular rate and rhythm. Her thoughts are organized. She denies any thoughts to hurt herself or others. She denies paranoia or hallucinations. She has good insight and fair and appropriate judgment. CONSULTS: The patient was seen for a baseline physical exam on March 11, 2018, by Dr. Hooper. Does note the patient has an allergy to oxycodone or an adverse reaction to oxycodone. It noted that she had punched a wall prior to admission and had fractured her index finger that did not need surgery. LABS: In the emergency department, the patient had a urine drug screen positive for cannabis and amphetamines. It was negative for alcohol or other drugs of abuse. Her urine test was negative. Sodium 137, potassium 4.2, creatinine 0.6, glucose 80, calcium 10.1. White blood cell count 9.6, hemoglobin 15.1, platelet count 295. ADVANCED DIRECTIVES: Patient declined advanced directive. NICOTINE USE DISORDER SCREENING: Patient denied regular use of nicotine. ALCOHOL USE DISORDER SCREENING: Patient has a history of binge drinking alcohol once or twice a month. She denies a history of dependence or withdrawal. She was counseled about the dangers of alcohol causing impulsivity and mood swings and medical problems. DISCHARGE DIAGNOSES: Stimulant-related psychotic disorder; Cannabis-related psychotic disorder; Cannabis use disorder, severe; Stimulant use disorder, severe; History of attention deficit hyperactivity disorder; History of unspecified depressive disorder; History of unspecified anxiety disorder, Rule out substance-induced bipolar disorder. DISCHARGE MEDICATIONS: The patient was counseled to stop taking her Adderall and her fluoxetine. The patient is recommended to continue her Kendall oral contraceptive pill. FOLLOWUP: The patient will be following up at [facility] with Dr. Manpreet Sena for psychiatric followup. The patient has a private therapist named Lavonne Fletcher. DISPOSITION: The patient is leaving the unit with her mother. The discharge instructions were reviewed with the patient's mother as well. LEGAL STATUS: The patient was admitted on M1 hold. She agreed to sign voluntarily on March 13, 2018, until her discharge paperwork and followup appointments could be arranged so that she could be discharged with her mother. OTHER INSTRUCTIONS: The patient is counseled to stop using cannabis as this can cause psychosis and anxiety. She was counseled to stop taking Adderall as this can cause insomnia and psychosis. She was counseled to stop taking fluoxetine until re-evaluated by her outpatient psychiatrist, due to the risk of fluoxetine inducing a bipolar disorder episode. /[id number]/MODL MTDD
== END 2018-03-13 11:27 | disposition home or self-care (01) | DRG 897 ==
LOC: EDBD → EDUNIT# → EEVIPCON 10:52 → BBEH 19:45
PROVIDERS: ADMIT Psychiatry & Neurology Psychiatry
DX: F12.259 Cannabis dependence with psychotic disorder, unspecified (principal); F15.259 Other stimulant dependence with stimulant-induced psychotic disorder, unspecified; F23 Brief psychotic disorder; F19.94 Other psychoactive substance use, unspecified with psychoactive substance-induced mood disorder; F90.9 Attention-deficit hyperactivity disorder, unspecified type; F32.9 Major depressive disorder, single episode, unspecified; G47.00 Insomnia, unspecified; F41.9 Anxiety disorder, unspecified; F10.20 Alcohol dependence, uncomplicated; S62.600D Fracture of unspecified phalanx of right index finger, subsequent encounter for fracture with routine healing; W22.8XXD Striking against or struck by other objects, subsequent encounter; L70.9 Acne, unspecified; Z73.3 Stress, not elsewhere classified; Z63.4 Disappearance and death of family member; Z63.8 Other specified problems related to primary support group
CPT/HCPCS: 80305; G0480

== ENCOUNTER 2018-08-19 01:54 | Emergency (ER) | payer OTHER ==
--- NOTE | 2018-08-19 03:00 | EDPHY ---
H & P Stated Complaint: palpation, tightness in throat with one episode vomiting...multiple sx Time Seen by Provider: 08/19/18 03:08 HPI/ROS: HPI CHIEF COMPLAINT: Right arm pain, palpitations, left arm pain, anxiety HISTORY OF PRESENT ILLNESS: 23-year-old female, denies any significant medical history does not take any daily medications except Adderall, presents emergency room she states about 2 hr ago she developed some right hand pain while holding a pen. Her sharp stabbing right wrist hand pain. She then felt very nauseous and vomited. She also developed anxiety and palpitations. Also complains of some chest tightness. Due to all of this she decided come the emergency room. Upon arrival to the emergency room she is feeling better. However feels anxious. Past Medical History: Denies significant medical history Past Surgical History: Denies significant surgical history Social History: [employer] student, alcohol use. Denies drug use. Family History: Noncontributory ROS REVIEW OF SYSTEMS: 10 Systems were reviewed and negative with the exception of the elements mentioned in the history of present illness. Exam Constitutional triage nursing summary reviewed, vital signs reviewed, awake/ alert. Eyes normal conjunctivae and sclera, EOMI, PERRLA. HENT normal inspection, atraumatic, moist mucus membranes, no epistaxis, neck supple/ no meningismus, no raccoon eyes. Respiratory clear to auscultation bilaterally, normal breath sounds, no respiratory distress, no wheezing. Cardiovascular rate normal, regular rhythm, no murmur, no edema, distal pulses normal. Gastrointestinal soft, non-tender, no rebound, no guarding, normal bowel sounds, no distension, no pulsatile mass. Genitourinary no CVA tenderness. Musculoskeletal no midline vertebral tenderness, full range of motion, no calf swelling, no tenderness of extremities, no meningismus, good pulses, neurovascularly intact. Skin pink, warm, & dry, no rash, skin atraumatic. Neurologic awake, alert and oriented x 3, AAOx3, moves all 4 extremities equally, motor intact, sensory intact, CN II-XII intact, normal cerebellar, normal vision, normal speech. Psychiatric normal mood/affect. Heme/Lymph/Immune no lymphadenopathy. Differential diagnosis includes but is not limited to: ACS, atypical chest pain , pneumothorax, pneumonia, pulmonary embolism, aortic dissection, congestive heart failure, tumor, musculoskeletal pain, esophageal pain, GERD, peptic ulcer disease, pancreatitis Medical Decision Making: Plan for this patient IV establishment IV fluid bolus , EKG, chest x-ray, blood work, electrolytes, D-dimer. Troponin. Re-evaluate. Re-evaluation: EKG interpretation by me on record in [facility] system. Impression time of EKG 3:02 a.m., sinus rhythm rate of 82 without any signs of acute ischemia or signs of cardiac arrhythmia. ED x-ray chest one view negative for acute cardiopulmonary disease. Image interpreted by myself. Patient's troponin 0.00. Patient D-dimer negative. Patient's EKG that is nonischemic. ED x-ray chest one view negative for acute cardiopulmonary disease. 0556: Patient resting comfortably no acute distress. Denies chest pain or shortness of breath. States she has been feeling much better. Denies chest pain or shortness of breath. Denies palpitations. She has been resting comfortably. Vital signs stable. 0658: Patient re-evaluated this time resting comfortably. She has a 2nd troponin is negative. Denies chest pain or shortness of breath. Chest x-ray shows no evidence of acute cardiopulmonary disease. Clinically patient appears well nontoxic comfortable going home. Return precautions discussed Source: Patient - Personal History LMP (Females 10-55): 1-7 Days Ago Current Tetanus/Diphtheria Vaccine: No Current Tetanus Diphtheria and Acellular Pertussis (TDAP): No - Medical/Surgical History Hx Asthma: No Hx Chronic Respiratory Disease: No Hx Diabetes: No Hx Cardiac Disease: No Hx Renal Disease: No Hx Cirrhosis: No Hx Alcoholism: No Hx HIV/AIDS: No Hx Splenectomy or Spleen Trauma: No Other PMH: ADHD/ADD, l finger fx. - Social History Smoking Status: Never smoked Constitutional: Initial Vital Signs Temperature (C) 36.9 C 08/19/18 02:00 Heart Rate 99 08/19/18 02:00 Respiratory Rate 16 08/19/18 02:00 Blood Pressure 125/84 H 08/19/18 02:00 O2 Sat (%) 95 08/19/18 02:00 O2 Delivery Mode Room Air Allergies/Adverse Reactions: oxycodone Allergy (Verified 08/19/18 02:04) "Itchy", "[place] loopy" Home Medications: Medication Instructions Recorded Norethindrone AC-Eth Estradiol 1 each PO DAILY 03/10/18 [Kendall 1.5 mg-30 Mcg Tablet] Adderall 10 MG (*) 08/19/18 Medical Decision Making - Data Points Laboratory Results: Laboratory Results 08/19/18 03:12 08/19/18 03:12 08/19/18 08/19/18 08/19/18 06:04 03:34 03:12 WBC RBC Hgb Hct MCV MCH MCHC RDW Plt Count MPV Neut % (Auto) Lymph % (Auto) Faulkner % (Auto) Eos % (Auto) Baso % (Auto) Nucleat RBC Rel Count Absolute Neuts (auto) Absolute Lymphs (auto) Absolute Monos (auto) Absolute Eos (auto) Absolute Basos (auto) Absolute Nucleated RBC Immature Gran % Immature Gran # D-Dimer < 0.27 ug/mLFEU ug/mLFEU (0.00-0.50) Sodium Potassium Chloride Carbon Dioxide Anion Gap BUN Creatinine Estimated GFR Glucose Calcium Magnesium Total Bilirubin Conjugated Bilirubin Unconjugated Bilirubin AST ALT Alkaline Phosphatase POC Troponin I 0.00 ng/mL ng/mL 0.00 ng/mL ng/mL (0.00-0.08) (0.00-0.08) NT-Pro-B Natriuret Pep Total Protein Albumin Beta HCG, Qual 08/19/18 08/19/18 08/19/18 03:12 03:12 03:12 WBC 10.78 10^3/uL H 10^3/uL (3.80-9.50) RBC 4.30 10^6/uL 10^6/uL (4.18-5.33) Hgb 14.0 g/dL g/dL (12.6-16.3) Hct 39.2 % % (38.0-47.0) MCV 91.2 fL fL (81.5-99.8) MCH 32.6 pg pg (27.9-34.1) MCHC 35.7 g/dL g/dL (32.4-36.7) RDW 11.9 % % (11.5-15.2) Plt Count 292 10^3/uL 10^3/uL (150-400) MPV 8.8 fL fL (8.7-11.7) Neut % (Auto) 62.3 % % (39.3-74.2) Lymph % (Auto) 29.9 % % (15.0-45.0) Faulkner % (Auto) 6.3 % % (4.5-13.0) Eos % (Auto) 0.7 % % (0.6-7.6) Baso % (Auto) 0.6 % % (0.3-1.7) Nucleat RBC Rel Count 0.0 % % (0.0-0.2) Absolute Neuts (auto) 6.72 10^3/uL H 10^3/uL (1.70-6.50) Absolute Lymphs (auto) 3.22 10^3/uL H 10^3/uL (1.00-3.00) Absolute Monos (auto) 0.68 10^3/uL 10^3/uL (0.30-0.80) Absolute Eos (auto) 0.08 10^3/uL 10^3/uL (0.03-0.40) Absolute Basos (auto) 0.06 10^3/uL 10^3/uL (0.02-0.10) Absolute Nucleated RBC 0.00 10^3/uL 10^3/uL (0-0.01) Immature Gran % 0.2 % % (0.0-1.1) Immature Gran # 0.02 10^3/uL 10^3/uL (0.00-0.10) D-Dimer Sodium 139 mEq/L mEq/L (135-145) Potassium 4.2 mEq/L mEq/L (3.3-5.0) Chloride 101 mEq/L mEq/L (97-110) Carbon Dioxide 28 mEq/l mEq/l (22-31) Anion Gap 10 mEq/L mEq/L (6-14) BUN 10 mg/dL mg/dL (7-23) Creatinine 0.5 mg/dL L mg/dL (0.6-1.0) Estimated GFR > 60 Glucose 98 mg/dL mg/dL (70-100) Calcium 10.3 mg/dL mg/dL (8.5-10.4) Magnesium 1.7 mg/dL mg/dL (1.6-2.3) Total Bilirubin 0.8 mg/dL mg/dL (0.1-1.4) Conjugated Bilirubin 0.2 mg/dL mg/dL (0.0-0.5) Unconjugated Bilirubin 0.6 mg/dL mg/dL (0.0-1.1) AST 28 IU/L IU/L (14-46) ALT 31 IU/L IU/L (9-52) Alkaline Phosphatase 42 IU/L IU/L (38-126) POC Troponin I NT-Pro-B Natriuret Pep 35 pg/mL pg/mL (0-125) Total Protein 7.3 g/dL g/dL (6.3-8.2) Albumin 4.4 g/dL g/dL (3.5-5.0) Beta HCG, Qual NEGATIVE Medications Given: Discontinued Medications Sodium Chloride (Ns) 1,000 mls @ 0 mls/hr IV EDNOW ONE; Wide Open PRN Reason: Protocol Stop: 08/19/18 03:08 Last Admin: 08/19/18 03:36 Dose: 1,000 mls Point of Care Test Results: Chemistry 08/19/18 08/19/18 06:04 03:34 POC Troponin I 0.00 ng/mL ng/mL 0.00 ng/mL ng/mL (0.00-0.08) (0.00-0.08) Departure - Departure Disposition: Home, Routine, Self-Care Clinical Impression: Palpitations Instructions: Heart Palpitations (ED) Additional Instructions: 1. Return to the emergency room if you have any worsening symptoms questions or concerns. 2. Rest. 3. Stay well-hydrated. 4. Return if worse. Referrals: NONE *PRIMARY CARE P,. [Primary Care Provider] - As per Instructions
[2018-08-19] MEDS ORDERED: NS 1,000 ML IV ONE (03:07)
[2018-08-19 03:25] LABS: PLATELET COUNT 292 10^3/uL (150-400)
[2018-08-19] MEDS ORDERED: KETOROLAC 15 MG/1 ML SDV IVP ONE (07:02)
[2018-08-19] MEDS ORDERED: HYDROmorphONE/DILAUDID 2 MG/ML INJ IVP ONE (07:02)
[2018-08-19 07:14] VITALS: BP 106/80
--- NOTE | 2018-08-19 08:21 | CPEKG ---
Test Reason : OPEN Blood Pressure : / mmHG Vent. Rate : 082 BPM Atrial Rate : 081 BPM P-R Int : 164 ms QRS Dur : 090 ms QT Int : 420 ms P-R-T Axes : -08 063 053 degrees QTc Int : 491 ms Sinus rhythm Borderline prolonged QT interval Confirmed by Aguila Michel ([id number] on 08/19/2018 8:19:43 AM Referred By: Confirmed By:Aguila Michel
== END 2018-08-19 07:14 | disposition home or self-care (01) ==
DX: R00.2 Palpitations (principal); R07.89 Other chest pain; M79.641 Pain in right hand; F41.9 Anxiety disorder, unspecified; E86.9 Volume depletion, unspecified
CPT/HCPCS: 84484-PO; 96374